=== PATIENT | female | born 1935 | race Caucasian/White ===

== ENCOUNTER 2018-03-07 10:41 | Inpatient (IN) | payer MEDICARE, OTHER ==
[2018-03-07] MEDS ORDERED: Iohexol 240 (50 ml) PO STA (11:55)
[2018-03-07] MEDS ORDERED: Sodium Chloride 0.9% 1,000 ML IV ONE (11:55)
--- NOTE | 2018-03-07 11:55 | C.PDOC ---
History Of Present Illness 82-year-old female presents to the ED via EMS with new onset nausea, vomiting, and epigastric pain since last night. Patient reports persistent nausea. Denies fever or diarrhea. Patient reports PMHx significant for hysterectomy and cholecystectomy. EXAM MILD DIST NONTOXIC ABD +EPIG TEND SOFT NO R/G REMAINDER NEG Time Seen by Provider: 03/07/18 11:36 Chief Complaint (Nursing): Abdominal Pain History Per: Patient History/Exam Limitations: no limitations Onset/Duration Of Symptoms: Days Current Symptoms Are (Timing): Still Present Location Of Pain/Discomfort: Epigastric Associated Symptoms: Nausea, Vomiting Past Medical History Reviewed: Historical Data, Nursing Documentation, Vital Signs Vital Signs: Last Vital Signs Temp 98.7 F 03/07/18 10:51 Pulse 68 03/07/18 10:51 Resp 18 03/07/18 10:51 BP 149/79 03/07/18 10:51 Pulse Ox 97 03/07/18 15:43 - Medical History PMH: Arthritis, Asthma, Gastritis, HTN, Hypercholesterolemia Surgical History: Cholecystectomy, Coronary Stent Other Surgeries: Hysterectomy Family History: States: No Known Family Hx - Social History Hx Tobacco Use: No Hx Alcohol Use: No Hx Substance Use: No - Immunization History Hx Tetanus Toxoid Vaccination: No Hx Influenza Vaccination: No Hx Pneumococcal Vaccination: No Review Of Systems Constitutional: Negative for: Fever, Chills Gastrointestinal: Positive for: Nausea, Vomiting, Abdominal Pain. Negative for : Diarrhea Physical Exam - Physical Exam Appears: Non-toxic, In Acute Distress (mild) Skin: Warm, Dry Head: Normacephalic Eye(s): bilateral: PERRL, EOMI Nose: Normal Oral Mucosa: Moist Lips: Normal Appearing Neck: Normal ROM Cardiovascular: Rhythm Regular, No Murmur Respiratory: Normal Breath Sounds, No Accessory Muscle Use, No Rales, No Rhonchi , No Wheezing Gastrointestinal/Abdominal: Soft, Tenderness (epigastric tenderness), No Guarding, No Rebound Extremity: Normal ROM, No Deformity, No Swelling Neurological/Psych: Oriented x3, Normal Speech ED Course And Treatment - Laboratory Results Result Diagrams: 03/07/18 12:29 03/07/18 12:29 O2 Sat by Pulse Oximetry: 97 (RA) Pulse Ox Interpretation: Normal - Radiology CXR: Viewed By Me, Read By Radiologist CXR Interpretation: Yes: No Acute Disease - CT Scan/US CT abdomen/pelvis Other Rad Studies (CT/US): Read By Radiologist, Radiology Report Reviewed CT/US Interpretation: Accession No. : [id number]. Patient Name / ID : SKYLER YARBROUGH / [id number]. Exam Date : 03/07/2018 14:40:37 ( Approved ). Study Comment : Sex / Age : F / 82Y. Creator : Gloria Silva. Dictator : Tim Morgan MD. Optometric Coordinator : Stringed Instrument Assembler : iTm Morgan MD. Approver2 : Report Date : 03/07/2018 15:17:39. My Comment : . PROCEDURE: CT Abdomen and Pelvis with contrast. HISTORY: abd pain VOMITING R/O OBSTRUCT. COMPARISON: CT scan of the abdomen and pelvis dated 06/25/2012. TECHNIQUE: Contrast dose: 100 mL Visipaque 320. Radiation dose: Total exam DLP = 537.6 mGy-cm. This CT exam was performed using one or more of the following dose reduction techniques: Automated exposure control, adjustment of the mA and/or kV according to patient size, and/or use of iterative reconstruction technique. FINDINGS: LOWER THORAX: Bibasilar atelectasis/ scarring. Cardiomegaly. Coronary arterial and valvular calcifications. LIVER: Nonspecific 8 mm right hepatic lobe hypo attenuating structure (series 3, image 36). Mild central intrahepatic ductal dilatation. GALLBLADDER AND BILE DUCTS: Prior cholecystectomy with expected dilatation of the CBD measuring up to 1.2 cm. PANCREAS: Unremarkable. No gross lesion or ductal dilatation. SPLEEN: Unremarkable. ADRENALS: Unremarkable. No mass. KIDNEYS AND URETERS: Small left upper pole renal cysts. No hydronephrosis. No solid mass. VASCULATURE: Calcific atherosclerosis. No aortic aneurysm. BOWEL: Dilated loops of small bowel measuring up to 3.2 cm with fecalization of ileal contents and caliber change in the anterior left lower quadrant. Mild cecal diverticulosis. No obstruction. No gross mural thickening. APPENDIX: Normal appendix. PERITONEUM: Unremarkable. No free fluid. No free air. LYMPH NODES: Unremarkable. No enlarged lymph nodes. BLADDER: Unremarkable. REPRODUCTIVE : Not visualized. BONES: No acute fracture. Degenerative changes. Bone island in the left T11 vertebral body/ pedicle. OTHER FINDINGS: None. IMPRESSION: Small bowel obstruction with transition zone in the anterior left lower quadrant ileum. Additional incidental findings as above. Progress Note: Ordered labs, EKG, chest x-ray, and CT abdomen/pelvis. Patient given IV fluids, Morphine, and Zofran. Progress - Re-Evaluation Re-evaluation Note: 03/07/18 14:02 CO RECUR PAIN. RESIDUAL NAUSEA. PENDING CT 03/07/18 15:41 D/W RADIOLOGIST: +SBO SP REPEAT MORPHINE APPEARS COMFORTABLE VSS. 03/07/18 15:42 D/W DR GARNER AWARE OF ER FINDINGS WILL ADMIT. CONSULT DR SHAH - Data Reviewed Data Reviewed: Lab, Diagnostic imaging, EKG, Old records - Continuity of Care Discussed patient case with:: Patient, Family-HIPPA compliant Disposition Counseled Patient/Family Regarding: Studies Performed, Diagnosis - Disposition Disposition: HOSPITALIZED Disposition Time: 15:41 Condition: SERIOUS - POA Present On Arrival: Poor Glycemic Control - Clinical Impression Clinical Impression: Bowel obstruction Decision To Admit - Pt Status Changed To: Hospital Disposition Of: Inpatient - Admit Certification Admit to Inpatient:: After my assessment, the patient will require hospitalization for at least two midnights. This is because of the severity of symptoms shown, intensity of services needed, and/or the medical risk in this patient being treated as an outpatient. - InPatient: Physician Admission Certification:: SEE NOTE - . Bed Request Type: Regular Admitting Physician: Carol Garner Patient Diagnosis: Bowel obstruction
--- NOTE | 2018-03-07 12:16 | RAD ---
PROCEDURE: CHEST RADIOGRAPH, 1 VIEW HISTORY: Abdominal pain COMPARISON: None available. FINDINGS: LUNGS: The lungs are well inflated and clear. PLEURA: No pneumothorax or pleural fluid seen. CARDIOVASCULAR: The heart is normal in size. Atherosclerotic aortic arch calcifications are present. OSSEOUS STRUCTURES: No significant abnormalities. VISUALIZED UPPER ABDOMEN: Normal. OTHER FINDINGS: None. IMPRESSION: No active pulmonary disease.
[2018-03-07 12:33] LABS: BASO # 0.1 K/uL (0.0-0.2); BASO % 0.6 % (0.0-2.0); EOS # 0.1 K/uL (0.0-0.7); EOS % 0.8 % (0.0-4.0); HEMOGLOBIN 13.4 g/dL (11.0-16.0); LYMPH # 1.4 K/uL (1.0-4.3); LYMPH % 14.1 % (20.0-40.0); MEAN CELL VOLUME 88.7 fL (81.0-99.0); MEAN CORPUSCULAR HEMOGLOBIN 29.7 pg (27.0-31.0); MEAN CORPUSCULAR HGB CONC 33.4 g/dL (33.0-37.0); MEAN PLATELET VOLUME 11.3 fL (7.2-11.7); MONO # 0.4 K/uL (0.0-0.8); MONO % 3.9 % (0.0-10.0); NEUT # 8.2 K/uL (1.8-7.0); NEUT % 80.6 % (50.0-75.0); NRBC % 0.1 % (0.0-2.0); RBC 4.52 Mil/uL (3.80-5.20); RED CELL DISTRIBUTION WIDTH 13.8 % (11.5-14.5); WHITE BLOOD COUNT 10.2 K/uL (4.8-10.8)
[2018-03-07] MEDS ORDERED: Morphine 4 MG/ML VIAL ONE ×2 (12:33→14:05)
[2018-03-07] MEDS ORDERED: Iohexol 240 (50 ml) ONE (12:33)
[2018-03-07 12:54] LABS: SQUAMOUS EPITHIAL 24 /hpf (0-5); URINE BACTERIA OCC (<OCC); URINE BILIRUBIN NEGATIVE (NEGATIVE); URINE BLOOD NEGATIVE (NEGATIVE); URINE CLARITY Hazy (Clear); URINE COLOR Amber (YELLOW); URINE GLUCOSE (UA) NORMAL (Normal); URINE HYALINE CAST 0-2 /lpf (0-2); URINE LEUKOCYTE ESTERASE 3+ Leu/uL (Negative); URINE PROTEIN 2+ mg/dL (NEGATIVE); URINE UROBILINOGEN NORMAL mg/dL (0.2-1.0)
[2018-03-07 12:55] LABS: ALB/GLOB RATIO 1.1 (1.0-2.1); ALBUMIN 4.5 g/dL (3.5-5.0); ALT/SGPT 28 U/L (9-52); AST/SGOT 38 U/L (14-36); BLOOD UREA NITROGEN 13 mg/dL (7-17); CALCIUM 9.2 mg/dl (8.6-10.4); GFR AFRICAN-AMERICAN > 60; GFR NON-AFRICAN AMERICAN > 60; LIPASE 55 U/L (23-300)
[2018-03-07] MEDS ORDERED: cefTRIAXone IV 1 gm in Dextros 50 ML IV STA (13:09)
[2018-03-07] MEDS ORDERED: cefTRIAXone IV 1 gm in Dextros 50 ML IVPB ONE (13:16)
[2018-03-07] MEDS ORDERED: Iodixanol 320 MG/ML 100 ML BOTTLE IV ONE (13:30)
--- NOTE | 2018-03-07 15:42 | CT ---
PROCEDURE: CT Abdomen and Pelvis with contrast HISTORY: abd pain VOMITING R/O OBSTRUCT COMPARISON: CT scan of the abdomen and pelvis dated 06/25/2012. TECHNIQUE: Contrast dose: 100 mL Visipaque 320 Radiation dose: Total exam DLP = 537.6 mGy-cm. This CT exam was performed using one or more of the following dose reduction techniques: Automated exposure control, adjustment of the mA and/or kV according to patient size, and/or use of iterative reconstruction technique. FINDINGS: LOWER THORAX: Bibasilar atelectasis/scarring. Cardiomegaly. Coronary arterial and valvular calcifications. LIVER: Nonspecific 8 mm right hepatic lobe hypo attenuating structure (series 3, image 36). Mild central intrahepatic ductal dilatation. GALLBLADDER AND BILE DUCTS: Prior cholecystectomy with expected dilatation of the CBD measuring up to 1.2 cm. PANCREAS: Unremarkable. No gross lesion or ductal dilatation. SPLEEN: Unremarkable. ADRENALS: Unremarkable. No mass. KIDNEYS AND URETERS: Small left upper pole renal cysts. No hydronephrosis. No solid mass. VASCULATURE: Calcific atherosclerosis. No aortic aneurysm. BOWEL: Dilated loops of small bowel measuring up to 3.2 cm with fecalization of ileal contents and caliber change in the anterior left lower quadrant. Mild cecal diverticulosis. No obstruction. No gross mural thickening. APPENDIX: Normal appendix. PERITONEUM: Unremarkable. No free fluid. No free air. LYMPH NODES: Unremarkable. No enlarged lymph nodes. BLADDER: Unremarkable. REPRODUCTIVE: Not visualized. BONES: No acute fracture. Degenerative changes. Bone island in the left T11 vertebral body/ pedicle. OTHER FINDINGS: None. IMPRESSION: Small bowel obstruction with transition zone in the anterior left lower quadrant ileum. Additional incidental findings as above. Findings conveyed to Dr. Block by Dr. Jackson at 3:37 pm on 03/07/2018.
[2018-03-07] MEDS ORDERED: Morphine 4 MG/ML VIAL IVP PRN (17:11)
--- NOTE | 2018-03-07 17:11 | CP.PCM.CON ---
History of Present Illness - History of Present Illness History of Present Illness: PGY-[address] Méndez. CC: "My belly hurts" HPI: Mrs Ma is a 82 year old female with a PMHx of DM, CAD , HTN, HLD, Gastritis, who presents to [facility] ER for epigastric abdominal pain and discomfort that began with sudden onset 1 day ago. She says last night at 3am she had biliary emesis and continued to have emesis for a total of 5 episodes. She also reports nausea. She says she had a bowel movement yesterday with very little stool. She says she is chronically constipated and that she takes Maalox at home. She says she's been previously in the hospital many times for this similar issue. She denies fever, chills, chest pain, focal deficits, bleeding, blood stools, blood emesis. Her other significant past medical hx includes hysterectomy, 2 coronary stents, cholecystectomy. PMHx: DM, CAD, HTN, HLD, Gastritis PSHx: hysterectomy, 2 coronary stents, cholecystectomy Allergies: NKA Home meds: Gabapentin 300mg PO TID, Dicyclomine 20mg PO QID PRN, other home meds collected by RN and listed in EMR FamHx: Denies SocialHx: Denies tobacco, alcohol, illicit drugs Review of Systems - Constitutional Constitutional: absent: Chills, Fatigue, Fever, Lethargy, Malaise - EENT Eyes: absent: Change in Vision Ears: absent: Ear Pain Nose/Mouth/Throat: absent: Nasal Congestion - Cardiovascular Cardiovascular: Dyspnea on Exertion. absent: Chest Pain - Respiratory Respiratory: Dyspnea on Exertion. absent: Cough, Hemoptysis, Wheezing, Change in Mucous Color - Gastrointestinal Gastrointestinal: As Per HPI, Abdominal Pain, Bloating, Change in Bowel Habits, Change in Stool Character, Constipation, Early Satiety, Nausea, Vomiting. absent: Coffee Ground Emesis, Diarrhea, Loose Stools, Melena - Genitourinary Genitourinary: absent: Dysuria - Musculoskeletal Musculoskeletal: Back Pain - Integumentary Integumentary: absent: Bleeding Lesions - Neurological Neurological: absent: Confusion Past Patient History - Past Social History Smoking Status: Never Smoked - CARDIAC Hx Hypercholesterolemia: Yes Hx Hypertension: Yes - PULMONARY Hx Asthma: Yes - ENDOCRINE/METABOLIC Hx Diabetes Mellitus Type 2: Yes - MUSCULOSKELETAL/RHEUMATOLOGICAL Hx Arthritis: Yes - GASTROINTESTINAL Hx Gastritis: Yes - PSYCHIATRIC Hx Substance Use: No - SURGICAL HISTORY Hx Cholecystectomy: Yes Hx Coronary Stent: Yes - ANESTHESIA Hx Anesthesia: Yes Hx Anesthesia Reactions: No Hx Malignant Hyperthermia: No Meds Allergies/Adverse Reactions: Allergies Allergy/AdvReac Type Severity Reaction Status Date / Time No Known Allergies Allergy Unverified 05/23/13 09:55 - Medications Medications: Current Medications Sodium Chloride (Sodium Chloride 0.9%) 1,000 mls @ 100 mls/hr IV .Q10H ONE Stop: 03/07/18 21:54 Last Admin: 03/07/18 12:36 Dose: 100 mls/hr Physical Exam - Constitutional Appears: Well, No Acute Distress - Head Exam Head Exam: ATRAUMATIC, NORMAL INSPECTION - Eye Exam Eye Exam: EOMI Pupil Exam: PERRL - ENT Exam ENT Exam: Mucous Membranes Moist - Neck Exam Neck exam: Positive for: Normal Inspection. Negative for: Lymphadenopathy, Tenderness - Respiratory Exam Respiratory Exam: Wheezes, NORMAL BREATHING PATTERN. absent: Rales, Rhonchi - Cardiovascular Exam Cardiovascular Exam: +S1, +S2, Systolic Murmur. absent: Bradycardia, Tachycardia, REGULAR RHYTHM, JVD - GI/Abdominal Exam GI & Abdominal Exam: Distended, Firm, Hyperactive Bowel Sounds, Soft, Tenderness. absent: Guarding, Hernia, Mass, Rebound - Extremities Exam Extremities exam: Positive for: normal capillary refill, normal inspection, pedal pulses present. Negative for: calf tenderness - Neurological Exam Neurological exam: Alert, Oriented x3 - Psychiatric Exam Psychiatric exam: Normal Affect, Normal Mood - Skin Skin Exam: Normal Color, Warm Results - Vital Signs Recent Vital Signs: Last Vital Signs Temp 98.7 F 03/07/18 10:51 Pulse 68 03/07/18 10:51 Resp 18 03/07/18 10:51 BP 149/79 03/07/18 10:51 Pulse Ox 97 03/07/18 16:43 - Labs Result Diagrams: 03/07/18 12:29 03/07/18 12:29 Labs: Laboratory Results - last 24 hr 03/07/18 03/07/18 03/07/18 12:29 12:29 12:29 WBC 10.2 RBC 4.52 Hgb 13.4 Hct 40.1 MCV 88.7 MCH 29.7 MCHC 33.4 RDW 13.8 Plt Count 278 MPV 11.3 Neut % (Auto) 80.6 H Lymph % (Auto) 14.1 L [place] % (Auto) 3.9 Eos % (Auto) 0.8 Baso % (Auto) 0.6 Neut # (Auto) 8.2 H Lymph # (Auto) 1.4 [place] # (Auto) 0.4 Eos # (Auto) 0.1 Baso # (Auto) 0.1 Sodium 141 Potassium 3.7 Chloride 92 L Carbon Dioxide 28 Anion Gap 24 H BUN 13 Creatinine 0.8 Est GFR ( Amer) > 60 Est GFR (Non-Af Amer) > 60 Random Glucose 114 H Calcium 9.2 Total Bilirubin 0.6 AST 38 H ALT 28 Alkaline Phosphatase 74 Troponin I < 0.0120 Total Protein 8.8 H Albumin 4.5 Globulin 4.3 H Albumin/Globulin Ratio 1.1 Lipase 55 Urine Color [place] Urine Clarity Hazy Urine pH 6.0 Ur Specific [place] 1.021 Urine Protein 2+ H Urine Glucose (UA) Normal Urine Ketones Negative Urine Blood Negative Urine Nitrate Negative Urine Bilirubin Negative Urine Urobilinogen Normal Ur Leukocyte Esterase 3+ H Urine WBC (Auto) 14 H Urine RBC (Auto) 3 Ur Squamous Epith Cells 24 H Urine Bacteria Occ H Hyaline Casts 0-2 Assessment & Plan (1) Bowel obstruction Assessment and Plan: Monitor NG tube output Serial abdominal exams Monitor for bowel function Keep NPO with IV fluids Pain control with morphine 2mg IVP Q4H PRN Zofran 4mg IVP Q4H PRN Discussed Dr Méndez Status: Acute
[2018-03-07] MEDS ORDERED: Lactated Ringer's 1,000 ML IV SCH (17:15)
[2018-03-07 18:42] VITALS: RESP 20
--- NOTE | 2018-03-07 19:18 | CP.PCM.PN ---
Subjective - Date & Time of Evaluation Date of Evaluation: 03/07/18 Time of Evaluation: 19:18 - Subjective Subjective: exsmined discussed with family might need exploration if no improvement Objective - Vital Signs/Intake and Output Vital Signs (last 24 hours): Temp Pulse Resp BP Pulse Ox 98 F 87 20 136/65 97 03/07/18 17:35 03/07/18 17:35 03/07/18 17:35 03/07/18 17:35 03/07/18 17:35 Intake and Output: 03/07/18 03/08/18 18:59 06:59 Output Total 250 Balance -250 - Medications Medications: Current Medications Sodium Chloride (Sodium Chloride 0.9%) 1,000 mls @ 100 mls/hr IV .Q10H ONE Stop: 03/07/18 21:54 Last Admin: 03/07/18 12:36 Dose: 100 mls/hr Lactated Ringer's (Lactated Ringer's) 1,000 mls @ 100 mls/hr IV .Q10H [facility] Morphine Sulfate (Morphine) 2 mg IVP Q4 PRN PRN Reason: Pain, moderate (4-7) Ondansetron HCl (Zofran Inj) 4 mg IVP Q4H PRN PRN Reason: Nausea/Vomiting - Labs Labs: 03/07/18 12:29 03/07/18 12:29
[2018-03-07] MEDS ORDERED: Potassium Ch 20mEq in D5-1/2NS 1,000 ML IV SCH (22:30)
[2018-03-08 07:35] LABS: BLOOD UREA NITROGEN 11 mg/dL (7-17); CALCIUM 8.5 mg/dl (8.6-10.4); GFR AFRICAN-AMERICAN > 60; GFR NON-AFRICAN AMERICAN > 60
--- NOTE | 2018-03-08 10:08 | CP.PCM.PN ---
Subjective - Date & Time of Evaluation Date of Evaluation: 03/08/18 Time of Evaluation: 07:20 - Subjective Subjective: Patient seen and examined at bedside. Patient had no nausea or vomiting overnight. Only 150cc's of fluid from NGT overnight. Patient denies any passing flatus or bowel movements. Objective - Vital Signs/Intake and Output Vital Signs (last 24 hours): Temp Pulse Resp BP Pulse Ox 98.3 F 90 20 155/79 H 96 03/08/18 07:41 03/08/18 07:41 03/08/18 07:41 03/08/18 07:41 03/08/18 07:41 Intake and Output: 03/08/18 03/08/18 06:59 18:59 Intake Total 1350 Output Total 250 Balance 1100 - Medications Medications: Current Medications Heparin Sodium (Porcine) (Heparin) 5,000 units SC Q8 [facility] Last Admin: 03/08/18 06:07 Dose: 5,000 units Potassium Chloride/Dextrose/Sod Cl (Potassium Chl 40 Meq In D5-1/2ns) 1,000 mls @ 100 mls/hr IV .Q10H [facility] Morphine Sulfate (Morphine) 2 mg IVP Q4 PRN PRN Reason: Pain, moderate (4-7) Last Admin: 03/08/18 01:09 Dose: 2 mg Ondansetron HCl (Zofran Inj) 4 mg IVP Q4H PRN PRN Reason: Nausea/Vomiting Pantoprazole Sodium (Protonix Inj) 40 mg IVP DAILY [facility] - Labs Labs: 03/07/18 12:29 03/08/18 07:12 - Constitutional Appears: Non-toxic, No Acute Distress - Head Exam Head Exam: ATRAUMATIC, NORMOCEPHALIC - Eye Exam Eye Exam: Normal appearance. absent: Conjunctival injection, Scleral icterus - ENT Exam ENT Exam: Mucous Membranes Moist, Normal Oropharynx - Respiratory Exam Respiratory Exam: NORMAL BREATHING PATTERN. absent: Accessory Muscle Use, Respiratory Distress - GI/Abdominal Exam GI & Abdominal Exam: Distended, Soft, Tenderness (diffuse mild abdominal tenderness). absent: Rebound - Extremities Exam Extremities Exam: absent: Calf Tenderness, Pedal Edema, Tenderness - Neurological Exam Neurological Exam: Alert, Awake, Oriented x3 - Psychiatric Exam Psychiatric exam: Normal Affect, Normal Mood - Skin Skin Exam: Dry, Intact, Normal Color, Warm Assessment and Plan - Assessment and Plan (Free Text) Assessment: 82F with SBO Plan: -Continue NPO -Continue NGT to continuous wall suction -Do not clamp or cover the [place] sump portion of the NGT as this is vital to its function and patient safety--discussed with night and day nurses -Fleets enema -Continue to monitor of bowel function -PRN pain and nausea medication -Continue to monitor CBC/BMP and replete electrolytes as needed--potassium and Magnesium supplementation initiated -further surgical planning pending patient clinical course Discussed with Dr.McGovern Nisha Villarreal, PGY2
[2018-03-08 10:30] LABS: B-TYPE NATRIURETIC PEPTIDE 149 pg/mL (0-900); CK-MB 2.63 ng/mL (0.0-3.38)
[2018-03-08] MEDS: Magnesium Sulfate 1 gm in D5W 1 GM/100 ML BAG IVPB SCH ×2 (11:58→13:44)
[2018-03-08] MEDS: Potassium Chl 40 mEq in D5-1/2 1,000 ML IV SCH ×2 (11:59→19:07)
[2018-03-08 14:12] LABS: BASO # 0.1 K/uL (0.0-0.2); BASO % 0.7 % (0.0-2.0); EOS # 0.1 K/uL (0.0-0.7); EOS % 1.2 % (0.0-4.0); HEMOGLOBIN 12.5 g/dL (11.0-16.0); LYMPH # 1.5 K/uL (1.0-4.3); LYMPH % 16.3 % (20.0-40.0); MEAN CELL VOLUME 87.8 fL (81.0-99.0); MEAN CORPUSCULAR HEMOGLOBIN 29.5 pg (27.0-31.0); MEAN CORPUSCULAR HGB CONC 33.6 g/dL (33.0-37.0); MEAN PLATELET VOLUME 10.8 fL (7.2-11.7); MONO # 0.4 K/uL (0.0-0.8); MONO % 4.7 % (0.0-10.0); NEUT # 7.1 K/uL (1.8-7.0); NEUT % 77.1 % (50.0-75.0); RBC 4.23 Mil/uL (3.80-5.20); RED CELL DISTRIBUTION WIDTH 13.8 % (11.5-14.5); WHITE BLOOD COUNT 9.3 K/uL (4.8-10.8)
--- NOTE | 2018-03-08 16:56 | CP.PCM.HP ---
History of Present Illness - History of Present Illness History of Present Illness: cc: Abdominal pain HPI: PT is a 82 year old female well known to me who presented to the ER. co 2 hours of nausea and vomiting and abdominal pain. Pt denies fever. Pt was diagnosed with sbo in the ER. 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 Smoke Neg. ETOH Neg Drugs Medications: Crestor 20 mg Metformin 500mg Aspirin 81mg Albuterol inhaler Omeprazole 40mg Ditropan XL 5mg Chlortalidone 50mg Metoprolol ER 50mg Norvasc 5mg Vitamin D3 Calcium 500mg Plavix 75mg Lipitor 40mg Present on Admission - Present on Admission Any Indicators Present on Admission: No Review of Systems - Constitutional Constitutional: absent: Chills - EENT Eyes: absent: Diplopia Nose/Mouth/Throat: absent: Nasal Obstruction - Cardiovascular Cardiovascular: absent: Chest Pain, Chest Pain with Activity - Respiratory Respiratory: absent: Hemoptysis - Gastrointestinal Gastrointestinal: Abdominal Pain, Nausea, Vomiting Past Patient History - Past Medical History & Family History Past Medical History?: Yes - Past Social History Smoking Status: Never Smoked - CARDIAC Hx Hypercholesterolemia: Yes Hx Hypertension: Yes - PULMONARY Hx Asthma: Yes - ENDOCRINE/METABOLIC Hx Diabetes Mellitus Type 2: Yes - MUSCULOSKELETAL/RHEUMATOLOGICAL Hx Arthritis: Yes Hx Falls: No - GASTROINTESTINAL Hx Gastritis: Yes - PSYCHIATRIC Hx Substance Use: No - SURGICAL HISTORY Hx Cholecystectomy: Yes Hx Coronary Stent: Yes - ANESTHESIA Hx Anesthesia: Yes Hx Anesthesia Reactions: No Hx Malignant Hyperthermia: No Meds Allergies/Adverse Reactions: Allergies Allergy/AdvReac Type Severity Reaction Status Date / Time No Known Allergies Allergy Unverified 05/23/13 09:55 Physical Exam - Constitutional Appears: No Acute Distress - Eye Exam Eye Exam: Normal appearance - ENT Exam ENT Exam: Mucous Membranes Moist - Respiratory Exam Respiratory Exam: Clear to Auscultation Bilateral, NORMAL BREATHING PATTERN - Cardiovascular Exam Cardiovascular Exam: REGULAR RHYTHM, RRR, +S1, +S2. absent: JVD - GI/Abdominal Exam GI & Abdominal Exam: Distended, Hypoactive Bowel Sounds, Tenderness (no leg edema). absent: Guarding, Pulsatile Mass, Rigid Results - Vital Signs Recent Vital Signs: Last Vital Signs Temp 98.3 F 03/08/18 07:41 Pulse 90 03/08/18 07:41 Resp 20 03/08/18 07:41 BP 155/79 H 03/08/18 07:41 Pulse Ox 96 03/08/18 07:41 - Labs Result Diagrams: 03/08/18 14:06 03/08/18 07:12 Labs: Laboratory Results - last 24 hr 03/07/18 03/07/18 03/08/18 17:47 21:34 07:12 WBC RBC Hgb Hct MCV MCH MCHC RDW Plt Count MPV Neut % (Auto) Lymph % (Auto) [place] % (Auto) Eos % (Auto) Baso % (Auto) Neut # (Auto) Lymph # (Auto) [place] # (Auto) Eos # (Auto) Baso # (Auto) Sodium 140 Potassium 3.3 L Chloride 94 L Carbon Dioxide 32 H Anion Gap 17 BUN 11 Creatinine 0.7 Est GFR ( Amer) > 60 Est GFR (Non-Af Amer) > 60 POC Glucose (mg/dL) 120 H 105 Random Glucose 134 H Calcium 8.5 L Phosphorus 3.3 Magnesium 1.3 L Total Creatine Kinase 108 CK-MB (Mass) 2.63 Troponin I 0.0130 NT-Pro-B Natriuret Pep 149 03/08/18 03/08/18 03/08/18 07:19 11:29 14:06 WBC 9.3 RBC 4.23 Hgb 12.5 Hct 37.1 MCV 87.8 MCH 29.5 MCHC 33.6 RDW 13.8 Plt Count 261 MPV 10.8 Neut % (Auto) 77.1 H Lymph % (Auto) 16.3 L [place] % (Auto) 4.7 Eos % (Auto) 1.2 Baso % (Auto) 0.7 Neut # (Auto) 7.1 H Lymph # (Auto) 1.5 [place] # (Auto) 0.4 Eos # (Auto) 0.1 Baso # (Auto) 0.1 Sodium Potassium Chloride Carbon Dioxide Anion Gap BUN Creatinine Est GFR ( Amer) Est GFR (Non-Af Amer) POC Glucose (mg/dL) 132 H 120 H Random Glucose Calcium Phosphorus Magnesium Total Creatine Kinase CK-MB (Mass) Troponin I NT-Pro-B Natriuret Pep Assessment & Plan - Assessment and Plan (Free Text) Assessment: SBO Dr. Remy following npo NGT ivf replaced K pt less nauseus today did not require any pain meds today per nurse Dicussed with daughters
--- NOTE | 2018-03-08 22:54 | CARD ---
APPROVED REPORT Protocol: PHARMACOLOGICAL STRESS Test Type: LEXISCAN Test Indications: PRE OP CARDIAC , CAD Medications: LIST SCAN Medical History: PRE OP CARDIAC,CAD Target HR: 139 bpm Resting ECG: right bundle branch block Resting Heart Rate: 110 bpm Resting Blood Pressure: 194/70mmHg submaximum (85%): 118 bpm TEST SUMMARY [id number]/70.0. INFUSIONDOSE 100:300.00.01.0114/.0. [id number]/60.0. PROCEDURE Pharmacologic stress testing was performed using 0.4mg per 5ml of regadenoson given intravenously over 7-10 seconds. POST EXERCISE Reason for Termination: Protocol Completed Target HR: No Max HR: 114 bpm 92% of Maximum Predicted HR: 139 bpm Exercise duration: 00:30 min:sec, 0 Stage Exercise capacity: 1.0METs Max Blood Pressure: 194/70mmHg Blood Pressure response to exercise: normal resting BP - appropriate response Heart Rate response to exercise: appropriate Chest Pain: No, none Angina index: 0 Arrhythmia: No, none ST Change: No, none Deviation: 0 mm INTERPRETATION Stress EKG Conclusion: Nuclear report to follow EXAM: Myocardial Perfusion REST/STRESS Imaging Protocol The imaging protocol used to acquire images was Rest Tc-99m/stress Tc-99m 1 day Rest Spect myocardial perfusion imaging was performed in supine position 45 minutes following the injection of 13.2 mCi of Tc-99 Myoview. Gated Stress Spect was performed 45 minutes after intravenous 32.3 mCi Tc-99 Myoview injection. The images were gated to evaluate regional wall motion and calculate ventricular ejection fraction.Images were reconstructed using backfilter projection method in short horizontal and verticle long axis. Spect slices were generated. RESTING DATA EDV44.63mhBT2.90L/min ESV14.00mlMyocardial Mass86.00g Av. Heart Rate98.00bpm EF68.00% STRESS DATA EDV37.70euHO3.60L/min ESV11.00mlMyocardial Mass80.00g EF70.00% Regional WT score at stress:1.00 Regional WM score at stress:0.00 Summed WT score at stress:7.00 Av. Heart Nbwq397.00bpmSummed WM score at stress:16.00 LV Perf. Quant 17 Seg. SSS1.00 17 Seg. SRS0.00 17 Seg. SDS1.00 Stress Defect Extent (% LAD)0.00Rest Defect Extent (% LAD)0.00Rev. Defect Extent (% LAD)0.00 Stress Defect Extent (% LCX)0.00Rest Defect Extent (% LCX)0.00Rev. Defect Extent (% LCX)0.00 Stress Defect Extent (% RCA)0.00Rest Defect Extent (% RCA)0.00Rev. Defect Extent (% RCA)0.00 Stress Defect Extent (% CHANTALE)0.00Rest Defect Extent (% CHANTALE)0.00Rev. Defect Extent (% CHANTALE)0.00 Other Information Quality:Good IMPRESSION Normal Myocardial Perfusion exercise stress study Left Ventricle LV Function:Left ventricle systolic function is normal. The Ejection Fraction is 65-70%. Metabolism/Perfusion There are no perfusion/metabolism defects. Conclusion 1. Normal lexiscan nuclear stress test. Normal EF.
--- NOTE | 2018-03-08 23:16 | CP.PCM.PN ---
Subjective - Date & Time of Evaluation Date of Evaluation: 03/08/18 Time of Evaluation: 15:50 - Subjective Subjective: Patient s/p stress test Normal stress test and Normal EF Objective - Vital Signs/Intake and Output Vital Signs (last 24 hours): Temp Pulse Resp BP Pulse Ox 98.4 F 90 20 163/80 H 98 03/08/18 15:15 03/08/18 15:15 03/08/18 15:15 03/08/18 15:15 03/08/18 15:15 Intake and Output: 03/08/18 03/09/18 18:59 06:59 Intake Total 1700 Output Total 50 70 Balance -50 1630 - Medications Medications: Current Medications Heparin Sodium (Porcine) (Heparin) 5,000 units SC Q8 [facility] Last Admin: 03/08/18 22:28 Dose: 5,000 units Potassium Chloride/Dextrose/Sod Cl (Potassium Chl 40 Meq In D5-1/2ns) 1,000 mls @ 100 mls/hr IV .Q10H [facility] Last Admin: 03/08/18 19:07 Dose: Not Given Morphine Sulfate (Morphine) 2 mg IVP Q4 PRN PRN Reason: Pain, moderate (4-7) Last Admin: 03/08/18 01:09 Dose: 2 mg Ondansetron HCl (Zofran Inj) 4 mg IVP Q4H PRN PRN Reason: Nausea/Vomiting Pantoprazole Sodium (Protonix Inj) 40 mg IVP DAILY [facility] Last Admin: 03/08/18 12:24 Dose: 40 mg - Labs Labs: 03/08/18 14:06 03/08/18 07:12
[2018-03-09] MEDS: Potassium Chl 40 mEq in D5-1/2 1,000 ML IV SCH ×3 (00:58→14:53)
[2018-03-09 07:47] LABS: BASO % 0.5 % (0.0-2.0); EOS # 0.2 K/uL (0.0-0.7); EOS % 2.5 % (0.0-4.0); HEMOGLOBIN 12.5 g/dL (11.0-16.0); LYMPH # 2.1 K/uL (1.0-4.3); LYMPH % 23.1 % (20.0-40.0); MEAN CELL VOLUME 88.5 fL (81.0-99.0); MEAN CORPUSCULAR HEMOGLOBIN 29.8 pg (27.0-31.0); MEAN CORPUSCULAR HGB CONC 33.6 g/dL (33.0-37.0); MEAN PLATELET VOLUME 10.9 fL (7.2-11.7); MONO # 0.6 K/uL (0.0-0.8); MONO % 6.1 % (0.0-10.0); NEUT # 6.1 K/uL (1.8-7.0); NEUT % 67.8 % (50.0-75.0); RBC 4.18 Mil/uL (3.80-5.20); RED CELL DISTRIBUTION WIDTH 13.8 % (11.5-14.5)
[2018-03-09 08:09] LABS: BLOOD UREA NITROGEN 5 mg/dL (7-17); CALCIUM 8.7 mg/dl (8.6-10.4); GFR AFRICAN-AMERICAN > 60; GFR NON-AFRICAN AMERICAN > 60
--- NOTE | 2018-03-09 09:27 | CP.PCM.PN ---
Subjective - Date & Time of Evaluation Date of Evaluation: 03/09/18 Time of Evaluation: 09:25 - Subjective Subjective: Surgery: Dr. Méndez Pt seen and examined. No acute overnight events. States her abdominal pain has completely resolved. Admits to passing gas but denies BM. Admits to discomfort secondary to NGT. Denies N/V, F/C. Objective - Vital Signs/Intake and Output Vital Signs (last 24 hours): Temp Pulse Resp BP Pulse Ox 98.8 F 96 H 20 152/69 H 97 03/09/18 00:00 03/09/18 00:00 03/09/18 00:00 03/09/18 00:00 03/09/18 00:00 Intake and Output: 03/09/18 03/09/18 06:59 18:59 Intake Total 2500 Output Total 70 Balance 2430 - Medications Medications: Current Medications Heparin Sodium (Porcine) (Heparin) 5,000 units SC Q8 [facility] Last Admin: 03/08/18 22:28 Dose: 5,000 units Potassium Chloride/Dextrose/Sod Cl (Potassium Chl 40 Meq In D5-1/2ns) 1,000 mls @ 100 mls/hr IV .Q10H [facility] Last Admin: 03/09/18 05:00 Dose: Not Given Ondansetron HCl (Zofran Inj) 4 mg IVP Q4H PRN PRN Reason: Nausea/Vomiting Pantoprazole Sodium (Protonix Inj) 40 mg IVP DAILY [facility] Last Admin: 03/08/18 12:24 Dose: 40 mg - Labs Labs: 03/09/18 07:36 03/09/18 07:36 - Constitutional Appears: Well, No Acute Distress - Head Exam Head Exam: ATRAUMATIC, NORMOCEPHALIC - Eye Exam Eye Exam: Normal appearance - ENT Exam ENT Exam: Mucous Membranes Moist - Respiratory Exam Respiratory Exam: NORMAL BREATHING PATTERN - Cardiovascular Exam Cardiovascular Exam: RRR - GI/Abdominal Exam GI & Abdominal Exam: Soft. absent: Tenderness - Neurological Exam Neurological Exam: Alert, Awake, Oriented x3 - Skin Skin Exam: Dry, Warm Assessment and Plan - Assessment and Plan (Free Text) Assessment: 82F with SBO; resolving Plan: - DC NGT - start CLD - monitor bowel function - will advance diet slowly as tolerated - d/w Dr. Dev Lawson, PGY-3
--- NOTE | 2018-03-09 16:16 | CP.PCM.PN ---
Subjective - Date & Time of Evaluation Date of Evaluation: 03/09/18 - Subjective Subjective: Pt feeling better passing gas seen by surgery diet advanced to CLD Objective - Vital Signs/Intake and Output Vital Signs (last 24 hours): Temp Pulse Resp BP Pulse Ox 98.8 F 90 20 155/70 H 97 03/09/18 00:00 03/09/18 13:45 03/09/18 00:00 03/09/18 13:45 03/09/18 13:45 Intake and Output: 03/09/18 03/09/18 06:59 18:59 Intake Total 2500 Output Total 70 Balance 2430 - Medications Medications: Current Medications Heparin Sodium (Porcine) (Heparin) 5,000 units SC Q8 [facility] Last Admin: 03/08/18 22:28 Dose: 5,000 units Potassium Chloride/Dextrose/Sod Cl (Potassium Chl 40 Meq In D5-1/2ns) 1,000 mls @ 100 mls/hr IV .Q10H [facility] Last Admin: 03/09/18 14:53 Dose: 100 mls/hr Ondansetron HCl (Zofran Inj) 4 mg IVP Q4H PRN PRN Reason: Nausea/Vomiting Pantoprazole Sodium (Protonix Inj) 40 mg IVP DAILY [facility] Last Admin: 03/09/18 10:21 Dose: 40 mg - Labs Labs: 03/09/18 07:36 03/09/18 07:36
[2018-03-10] MEDS: Potassium Chl 40 mEq in D5-1/2 1,000 ML IV SCH ×3 (01:30→21:20)
[2018-03-10 06:34] LABS: BASO # 0.1 K/uL (0.0-0.2); BASO % 0.7 % (0.0-2.0); EOS # 0.2 K/uL (0.0-0.7); EOS % 3.4 % (0.0-4.0); HEMOGLOBIN 11.6 g/dL (11.0-16.0); LYMPH # 1.9 K/uL (1.0-4.3); LYMPH % 28.6 % (20.0-40.0); MEAN CORPUSCULAR HGB CONC 33.7 g/dL (33.0-37.0); MEAN PLATELET VOLUME 11.4 fL (7.2-11.7); MONO # 0.5 K/uL (0.0-0.8); MONO % 6.8 % (0.0-10.0); NEUT # 4.1 K/uL (1.8-7.0); NEUT % 60.5 % (50.0-75.0); NRBC % 0.1 % (0.0-2.0); RBC 3.88 Mil/uL (3.80-5.20); RED CELL DISTRIBUTION WIDTH 14.1 % (11.5-14.5); WHITE BLOOD COUNT 6.8 K/uL (4.8-10.8)
[2018-03-10 06:44] LABS: BLOOD UREA NITROGEN 5 mg/dL (7-17); CALCIUM 8.4 mg/dl (8.6-10.4); GFR AFRICAN-AMERICAN > 60; GFR NON-AFRICAN AMERICAN > 60
--- NOTE | 2018-03-10 07:31 | CP.PCM.PN ---
Subjective - Date & Time of Evaluation Date of Evaluation: 03/09/18 Time of Evaluation: 19:45 - Subjective Subjective: Patient seen and evaluated Denies chest pain and dyspnea Passing gas and feeling better Less abdominal discomfort Objective - Vital Signs/Intake and Output Vital Signs (last 24 hours): Temp Pulse Resp BP Pulse Ox 98.5 F 79 20 131/75 95 03/10/18 00:00 03/10/18 00:00 03/10/18 00:00 03/10/18 00:00 03/10/18 00:00 Intake and Output: 03/10/18 03/10/18 06:59 18:59 Intake Total 1450 Balance 1450 - Medications Medications: Current Medications Heparin Sodium (Porcine) (Heparin) 5,000 units SC Q8 [facility] Last Admin: 03/08/18 22:28 Dose: 5,000 units Potassium Chloride/Dextrose/Sod Cl (Potassium Chl 40 Meq In D5-1/2ns) 1,000 mls @ 100 mls/hr IV .Q10H [facility] Last Admin: 03/10/18 01:30 Dose: 100 mls/hr Ondansetron HCl (Zofran Inj) 4 mg IVP Q4H PRN PRN Reason: Nausea/Vomiting Pantoprazole Sodium (Protonix Inj) 40 mg IVP DAILY [facility] Last Admin: 03/09/18 10:21 Dose: 40 mg - Labs Labs: 03/10/18 06:17 03/10/18 06:17
--- NOTE | 2018-03-10 08:34 | CP.PCM.PN ---
Subjective - Date & Time of Evaluation Date of Evaluation: 03/10/18 Time of Evaluation: 08:32 - Subjective Subjective: General surgery - Dr. Remy Pt S&E. NAEO. Pt given soft diet this morning and tolerated. She states her pain is gone and she feels better. She had a BM with the enema yesterday but no further BM. She is passing flatus. No N/V. Objective - Vital Signs/Intake and Output Vital Signs (last 24 hours): Temp Pulse Resp BP Pulse Ox 98.4 F 78 20 157/79 H 95 03/10/18 07:44 03/10/18 07:44 03/10/18 07:44 03/10/18 07:44 03/10/18 07:44 Intake and Output: 03/10/18 03/10/18 06:59 18:59 Intake Total 1450 Balance 1450 - Medications Medications: Current Medications Heparin Sodium (Porcine) (Heparin) 5,000 units SC Q8 [facility] Last Admin: 03/08/18 22:28 Dose: 5,000 units Potassium Chloride/Dextrose/Sod Cl (Potassium Chl 40 Meq In D5-1/2ns) 1,000 mls @ 100 mls/hr IV .Q10H [facility] Last Admin: 03/10/18 01:30 Dose: 100 mls/hr Ondansetron HCl (Zofran Inj) 4 mg IVP Q4H PRN PRN Reason: Nausea/Vomiting Pantoprazole Sodium (Protonix Inj) 40 mg IVP DAILY [facility] Last Admin: 03/09/18 10:21 Dose: 40 mg - Labs Labs: 03/10/18 06:17 03/10/18 06:17 - Constitutional Appears: No Acute Distress - Head Exam Head Exam: ATRAUMATIC, NORMAL INSPECTION, NORMOCEPHALIC - Eye Exam Eye Exam: Normal appearance - Respiratory Exam Respiratory Exam: NORMAL BREATHING PATTERN. absent: Respiratory Distress - Cardiovascular Exam Cardiovascular Exam: REGULAR RHYTHM - GI/Abdominal Exam GI & Abdominal Exam: Soft. absent: Distended, Guarding, Tenderness, Rebound - Neurological Exam Neurological Exam: Alert, Oriented x3 - Psychiatric Exam Psychiatric exam: Normal Affect, Normal Mood - Skin Skin Exam: Dry, Intact Assessment and Plan - Assessment and Plan (Free Text) Assessment: 82F with SBO; resolving Plan: - Soft Diet - monitor bowel function - No surgical intervention Dw Dr Murrietan
--- NOTE | 2018-03-10 09:19 | CP.PCM.PN ---
Subjective - Date & Time of Evaluation Date of Evaluation: 03/10/18 Time of Evaluation: 09:18 - Subjective Subjective: Pt feels better +flatus, but no mb had some bread this AM , no pain no N/V Objective - Vital Signs/Intake and Output Vital Signs (last 24 hours): Temp Pulse Resp BP Pulse Ox 98.4 F 78 20 157/79 H 95 03/10/18 07:44 03/10/18 07:44 03/10/18 07:44 03/10/18 07:44 03/10/18 07:44 Intake and Output: 03/10/18 03/10/18 06:59 18:59 Intake Total 1450 Balance 1450 - Medications Medications: Current Medications Heparin Sodium (Porcine) (Heparin) 5,000 units SC Q8 [facility] Last Admin: 03/08/18 22:28 Dose: 5,000 units Potassium Chloride/Dextrose/Sod Cl (Potassium Chl 40 Meq In D5-1/2ns) 1,000 mls @ 100 mls/hr IV .Q10H [facility] Last Admin: 03/10/18 01:30 Dose: 100 mls/hr Ondansetron HCl (Zofran Inj) 4 mg IVP Q4H PRN PRN Reason: Nausea/Vomiting Pantoprazole Sodium (Protonix Inj) 40 mg IVP DAILY [facility] Last Admin: 03/09/18 10:21 Dose: 40 mg - Labs Labs: 03/10/18 06:17 03/10/18 06:17 - Constitutional Appears: Well, Non-toxic, No Acute Distress - Eye Exam Eye Exam: Normal appearance - ENT Exam ENT Exam: Mucous Membranes Moist - Cardiovascular Exam Cardiovascular Exam: REGULAR RHYTHM, RRR, +S1, +S2. absent: JVD - GI/Abdominal Exam GI & Abdominal Exam: Hypoactive Bowel Sounds - Extremities Exam Extremities Exam: absent: Joint Swelling Assessment and Plan - Assessment and Plan (Free Text) Assessment: SBO: resolving +bs this AM +flatus cont monitoring diet tolerance appreciate Surgical team bp; monitor IVf lytes
[2018-03-10 18:04] VITALS: O2SAT 97
--- NOTE | 2018-03-11 06:46 | CP.PCM.PN ---
Subjective - Date & Time of Evaluation Date of Evaluation: 03/10/18 Time of Evaluation: 19:40 - Subjective Subjective: Patient seen and evaluated Comfortable Able to eat Objective - Vital Signs/Intake and Output Vital Signs (last 24 hours): Temp Pulse Resp BP Pulse Ox 98.5 F 66 20 138/74 97 03/11/18 00:00 03/11/18 00:00 03/11/18 00:00 03/11/18 00:00 03/11/18 00:00 Intake and Output: 03/10/18 03/11/18 18:59 06:59 Intake Total 1400 Balance 1400 - Medications Medications: Current Medications Heparin Sodium (Porcine) (Heparin) 5,000 units SC Q8 [facility] Last Admin: 03/08/18 22:28 Dose: 5,000 units Potassium Chloride/Dextrose/Sod Cl (Potassium Chl 40 Meq In D5-1/2ns) 1,000 mls @ 100 mls/hr IV .Q10H [facility] Last Admin: 03/10/18 21:20 Dose: 100 mls/hr Metoprolol Tartrate (Lopressor) 50 mg PO DAILY [facility] Last Admin: 03/10/18 09:38 Dose: 50 mg Ondansetron HCl (Zofran Inj) 4 mg IVP Q4H PRN PRN Reason: Nausea/Vomiting Pantoprazole Sodium (Protonix Inj) 40 mg IVP DAILY [facility] Last Admin: 03/10/18 09:38 Dose: 40 mg - Labs Labs: 03/10/18 06:17 03/10/18 06:17
[2018-03-11 07:49] LABS: BASO # 0.1 K/uL (0.0-0.2); EOS # 0.2 K/uL (0.0-0.7); EOS % 3.2 % (0.0-4.0); HEMOGLOBIN 12.3 g/dL (11.0-16.0); LYMPH # 2.1 K/uL (1.0-4.3); LYMPH % 28.6 % (20.0-40.0); MEAN CORPUSCULAR HEMOGLOBIN 29.5 pg (27.0-31.0); MEAN CORPUSCULAR HGB CONC 33.1 g/dL (33.0-37.0); MEAN PLATELET VOLUME 10.7 fL (7.2-11.7); MONO # 0.5 K/uL (0.0-0.8); MONO % 6.2 % (0.0-10.0); NEUT # 4.5 K/uL (1.8-7.0); RBC 4.17 Mil/uL (3.80-5.20); WHITE BLOOD COUNT 7.3 K/uL (4.8-10.8)
[2018-03-11 07:59] LABS: BLOOD UREA NITROGEN 6 mg/dL (7-17); CALCIUM 9.3 mg/dl (8.6-10.4); GFR AFRICAN-AMERICAN > 60; GFR NON-AFRICAN AMERICAN > 60
--- NOTE | 2018-03-11 08:14 | CP.PCM.PN ---
Subjective - Date & Time of Evaluation Date of Evaluation: 03/11/18 Time of Evaluation: 08:12 - Subjective Subjective: General Surgery - Dr. Méndez Pt S&E. NAEO. Pt denies any complaints. She states her pain is resolved. She is tolerating soft diet and having BMs. She is ambulating. No Fevers/ Chills, Nausea, Vomiting. Objective - Vital Signs/Intake and Output Vital Signs (last 24 hours): Temp Pulse Resp BP Pulse Ox 98.5 F 66 20 138/74 97 03/11/18 00:00 03/11/18 00:00 03/11/18 00:00 03/11/18 00:00 03/11/18 00:00 Intake and Output: 03/11/18 03/11/18 06:59 18:59 Intake Total 1000 Balance 1000 - Medications Medications: Current Medications Heparin Sodium (Porcine) (Heparin) 5,000 units SC Q8 [facility] Last Admin: 03/08/18 22:28 Dose: 5,000 units Metoprolol Tartrate (Lopressor) 50 mg PO DAILY [facility] Last Admin: 03/10/18 09:38 Dose: 50 mg Ondansetron HCl (Zofran Inj) 4 mg IVP Q4H PRN PRN Reason: Nausea/Vomiting Pantoprazole Sodium (Protonix Inj) 40 mg IVP DAILY [facility] Last Admin: 03/10/18 09:38 Dose: 40 mg - Labs Labs: 03/11/18 07:26 03/11/18 07:26 - Constitutional Appears: No Acute Distress - Head Exam Head Exam: ATRAUMATIC, NORMAL INSPECTION, NORMOCEPHALIC - Eye Exam Eye Exam: Normal appearance - Respiratory Exam Respiratory Exam: NORMAL BREATHING PATTERN. absent: Respiratory Distress - GI/Abdominal Exam GI & Abdominal Exam: Soft. absent: Distended, Firm, Guarding, Rigid, Tenderness , Rebound - Neurological Exam Neurological Exam: Alert, Oriented x3 - Psychiatric Exam Psychiatric exam: Normal Affect, Normal Mood - Skin Skin Exam: Dry, Intact Assessment and Plan - Assessment and Plan (Free Text) Assessment: 82F with SBO; resolved Plan: - Tolerating Regular Diet - Passing Flatus and having BMs - Clear for discharge from surgical standpoint Dw Dr Méndez
[2018-03-11 08:25] VITALS: BP 152/78; PULSE 70; TEMP 98.2
--- NOTE | 2018-03-11 11:10 | CARD ---
APPROVED REPORT EXAM: Two-dimensional and M-mode echocardiogram with Doppler and color Doppler. Other Information Quality : GoodRhythm : INDICATION Pre-Op Cardiac Disease: CAD 2D DIMENSIONS IVSd1.2 (0.7-1.1cm)LVDd3.7 (3.9-5.9cm) PWd1.0 (0.7-1.1cm)LVDs1.8 (2.5-4.0cm) FS (%) 51.4 %LVEF (%)70.0 (>50%) M-Mode DIMENSIONS Left Atrium (MM)2.78 (2.5-4.0cm)Aortic Root3.20 (2.2-3.7cm) Aortic Cusp Exc.1.60 (1.5-2.0cm) Mitral Valve MV E Iioyoqsc28.1cm/sMV A Asqkeetu361.0cm/sE/A ratio0.5 TDI E/Lateral E'0.0E/Medial E'0.0 Tricuspid Valve TR Peak Lvaqxwla864vi/sTR Peak Gr.21mmHg <Conclusion> Left ventricle: thickness: mild concentric thickening; size: normal; overall ejection fraction: 65%: diastolic filling pressures: elevated Mitral valve: annulus: normal: leaflets: normal: excursion: normal; no significant trans-mitral gradient: no significant incompetence: left atrium: normal Aortic valve: leaflets: calcific thickening: excursion: normal;16mmHg peak trans-aortic gradient: mild incompetence: aortic root: dilated Right sided Structures: Pulmonary valve: normal; no significant incompetence; Tricuspid valve: normal; no significant incompetence: Intra-cardiac hemodynamics: pulmonary systolic pressures: normal; central venous pressures: normal No pericardial effusion
--- NOTE | 2018-03-11 22:09 | CARD ---
APPROVED REPORT EKG Measurement Heart [id number] <Conclusion> Normal sinus rhythm Right bundle branch block Left ventricular hypertrophy with repolarization abnormality Abnormal ECG
== END 2018-03-11 16:13 | disposition home or self-care (01) | DRG 390 ==
LOC: C.ER 10:41 → C.9E 15:43 → C.3T 16:44
PROVIDERS: ADMIT Internal Medicine; ATTEND Internal Medicine
DX: K56.609 Unspecified intestinal obstruction, unspecified as to partial versus complete obstruction (principal); J45.909 Unspecified asthma, uncomplicated; I25.10 Atherosclerotic heart disease of native coronary artery without angina pectoris; I10 Essential (primary) hypertension; F01.50 Vascular dementia, unspecified severity, without behavioral disturbance, psychotic disturbance, mood disturbance, and anxiety; E78.5 Hyperlipidemia, unspecified; E11.9 Type 2 diabetes mellitus without complications; Z95.5 Presence of coronary angioplasty implant and graft; Z86.73 Personal history of transient ischemic attack (TIA), and cerebral infarction without residual deficits; Z79.4 Long term (current) use of insulin

== ENCOUNTER 2018-12-28 08:09 | Outpatient (CLI) | payer MEDICARE, OTHER | END 2018-12-28 08:10 | disposition home or self-care (01) | LOC: C.CARD 08:10 | DX: R07.9 Chest pain, unspecified (principal); I10 Essential (primary) hypertension ==